=== PATIENT | male | born 1995 | race Caucasian/White ===

== ENCOUNTER 2016-07-19 15:55 | Emergency (ER) | payer SELFPAY ==
[~2016-07-19] VITALS: Ht 180.3 cm; Wt 88.3 kg
[~2016-07-19 15:55] MED LIST: ADDE20TA PO; BACT PO; LORTA5 PO; ULTR50TA PO
[2016-07-19 16:02] VITALS: BP 116/70; PULSE 78; RESP 16; TEMP 98.1; O2SAT 96
--- NOTE | 2016-07-19 16:22 | PD ---
HPI Chief Complaint: Skin Problem Time Seen by Provider: 16:22 Travel History International Travel<30 days: No Contact w/Intl Traveler<30days: No Traveled to known affect area: No History of Present Illness HPI 21-year-old male assessed emergency Department with rash to the right upper posterior arm for the past month. Patient states started small and is gotten bigger and is circular and erythematous and raised. He denies any other complaints or issues. He has no known drug allergies. He is allergic to cats tender. PFSH Past Medical History ADHD: Yes Asthma: Yes Diminished Hearing: No Integumentary: Yes (CELLULITIS) Immunizations Current: Yes Tetanus Vaccination: < 5 Years Influenza Vaccination: No Past Surgical History Tonsillectomy: Yes Tympanostomy Tube: Yes Other Surgery: Yes (HAND) Social History Alcohol Use: No Tobacco Use: Yes (< 1PPD) Substance Use: No Allergies-Medications (Allergen,Severity, Reaction): Coded Allergies: Cat Dander (Unverified Allergy, Severe, Swelling, 07/19/16) Reported Meds & Prescriptions Reported Meds & Active Scripts Active No Active Prescriptions or Reported Medications Review of Systems General / Constitutional: No: Fever Eyes: No: Visual changes HENT: No: Headaches Cardiovascular: No: Chest Pain or Discomfort Respiratory: No: Shortness of Breath Gastrointestinal: No: Abdominal Pain Genitourinary: No: Dysuria Musculoskeletal: No: Pain Skin: Positive Rash Neurologic: No: Weakness Psychiatric: No: Depression Endocrine: No: Polydipsia Hematologic/Lymphatic: No: Easy Bruising Physical Exam Narrative GENERAL: Patient is in no acute distress. SKIN: Warm and dry. Patient has a circular erythematous raised well demarcated rash to the right upper posterior arm consistent with ringworm. HEAD: Atraumatic. Normocephalic. EYES: Pupils equal and round. No scleral icterus. No injection or drainage. ENT: No nasal bleeding or discharge. Mucous membranes pink and moist. Pharynx is normal. NECK: Trachea midline. Supple and nontender. CARDIOVASCULAR: Regular rate and rhythm. RESPIRATORY: No accessory muscle use. GASTROINTESTINAL: Abdomen soft, non-tender, nondistended. Hepatic and splenic margins not palpable. MUSCULOSKELETAL: Extremities without clubbing, cyanosis, or edema. No obvious deformities. NEUROLOGICAL: Awake and alert. No obvious cranial nerve deficits. Motor grossly within normal limits. Five out of 5 muscle strength in the arms and legs. Normal speech. PSYCHIATRIC: Appropriate mood and affect; insight and judgment normal. Data Data Last Documented VS Vital Signs Date Time Temp Pulse Resp B/P Pulse Ox O2 Delivery O2 Flow Rate FiO2 07/19/16 16:02 98.1 78 16 116/70 96 MDM Medical Decision Making Medical Screen Exam Complete: Yes Emergency Medical Condition: Yes Differential Diagnosis Rash. Cellulitis. Ringworm Narrative Course Patient is medically stable at time of exam. Patient will be treated with miconazole ointment 3 times a day next 4 weeks. Patient to follow with primary care physician or saddle stitch operator if symptoms persist. Diagnosis Primary Impression: Ringworm, body Referrals: [employer] Primary Care Physician Patient Instructions: General Instructions, Tinea Corporis (ED) Additional Instructions: Patient will be treated with miconazole ointment 3 times a day next 4 weeks. Patient to follow with primary care physician or saddle stitch operator if symptoms persist. Med/Other Pt SpecificInfo: Prescription(s) given Scripts Miconazole Topical 2% Cream1 Applic TOPICAL BID #15 GM Ref 1 Prov:Jos Trivedi MD 07/19/16 Disposition: 01 DISCHARGE HOME Condition: Stable Michael Shelton Jul 19, 2016 16:22
[2016-07-19] MEDS ORDERED: MICO2CRE34 TOPICAL (16:31)
== END 2016-07-19 16:40 | disposition home or self-care (01) ==
LOC: PHEFT 15:55
DX: B35.4 Tinea corporis (principal); J45.909 Unspecified asthma, uncomplicated; F17.210 Nicotine dependence, cigarettes, uncomplicated
CPT/HCPCS: 99282